=== PATIENT | female | born 1950 | race Caucasian/White ===

== ENCOUNTER 2022-07-06 05:27 | Day surgery (SDC) | payer OTHER ==
[~2022-07-06] VITALS: Ht 165.1 cm; Wt 83.9 kg
[~2022-07-06 05:27] MED LIST: BENADRYL PO; CLONAZEPAM2 MG PO; LOPRESS PO; PROTONIX40 MG PO
[2022-07-06] MEDS ORDERED: CEPHALEXIN500 MG PO (14:37)
[2022-07-06] MEDS ORDERED: TRAM1TAB98 PO (14:38)
[2022-07-14] MEDS ORDERED: KEFLEX PO (13:00)
== END 2022-07-06 15:00 | disposition home or self-care (01) ==
LOC: CIR.AMB 05:27
PROVIDERS: ATTEND Surgery
DX: R15.9 Full incontinence of feces (principal); K59.09 Other constipation; K21.9 Gastro-esophageal reflux disease without esophagitis; N39.46 Mixed incontinence; I10 Essential (primary) hypertension; Z20.822 Contact with and (suspected) exposure to COVID-19; Z88.2 Allergy status to sulfonamides; Z88.6 Allergy status to analgesic agent
CPT/HCPCS: 64581; 95972; C1778

== ENCOUNTER 2022-07-20 05:15 | Day surgery (SDC) | payer OTHER ==
[~2022-07-20 05:15] MED LIST changes: +CEPHALEXIN500 MG PO; +KEFLEX PO; +TRAM1TAB98 PO
== END 2022-07-20 10:55 | disposition home or self-care (01) ==
LOC: CIR.AMB 05:15
PROVIDERS: ATTEND Surgery
DX: R15.9 Full incontinence of feces (principal); K59.09 Other constipation; K21.9 Gastro-esophageal reflux disease without esophagitis; N39.46 Mixed incontinence
CPT/HCPCS: 64590; 95972; L8679

== ENCOUNTER 2022-10-26 07:53 | Inpatient (IN) | payer OTHER ==
[~2022-10-26] VITALS: Ht 165.1 cm; Wt 83.9 kg
[2022-10-28] MEDS ORDERED: INTESTINEX680 M1 PO (15:43)
[2022-10-28] MEDS ORDERED: LEVSIN/SL0.125 MG SL (15:43)
[2022-10-28] MEDS ORDERED: AMOX1TAB5 PO (15:43)
[2022-10-28] MEDS ORDERED: MESALAMINE DR400 MG PO (15:44)
[2022-10-29] MEDS ORDERED: QUESTRAN PACKET4 GM PO (07:46)
[2022-10-29] MEDS ORDERED: OMEPRAZOLE40 MG PO (07:46)
== END 2022-10-29 10:26 | disposition home or self-care (01) | DRG 379 ==
LOC: ER 07:53 → SURG 18:23 → SURH 10-27 10:56
PROVIDERS: ADMIT Surgery; ATTEND Surgery
PROC: 0DBL8ZX Excision of Transverse Colon, Via Natural or Artificial Opening Endoscopic, Diagnostic (ICD-10-PCS; principal; 2022-10-27)
DX: K92.2 Gastrointestinal hemorrhage, unspecified (principal); K52.9 Noninfective gastroenteritis and colitis, unspecified; R15.9 Full incontinence of feces